=== PATIENT | male | born 1985 | race Hispanic/Latino ===

== ENCOUNTER 2023-10-23 22:41 | Emergency (ER) | payer SELFPAY ==
[2023-10-23 22:53] VITALS: BP 143/107; PULSE 83; RESP 16; TEMP 37.1; O2SAT 94
[2023-10-23 23:39] LABS: Influenza A QL RT-PCR Negative (Negative); Influenza B QL RT-PCR Negative (Negative); RSV RNA, RT-PCR Negative (Negative); SARS-CoV-2 RNA PCR Negative (Negative)
[2023-10-24] MEDS: IBUPROFEN 400 MG TABLET 800 MG PO (00:32)
[2023-10-24] MEDS: ACETAMINOPHEN 500 MG TABLET 1000 MG PO (00:32)
[2023-10-24] MEDS: dexAMETHasone SOD PHOS INJ 10 MG/ML 1 ML VIAL IM (00:33)
[2023-10-24] MEDS: TETRACAINE HCL 0.5% OPHTH SOLN 4 ML BTL 1 DROP EACH EYE (00:49)
[2023-10-24] MEDS: FLUORESCEIN SOD 1 MG/STRIP EACH EYE (00:49)
[2023-10-24 01:14] LABS: Strep Group A RT-PCR NOT DETECTED (Negative)
--- NOTE | 2023-10-24 01:32 | ED.GENADULT ---
HPI - General Adult General Chief complaint: Fever Stated complaint: fever, ear pain, red eyes Time Seen by Provider: 10/23/23 23:41 History of Present Illness HPI narrative: Gabonese speaking. 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 This is a 37-year-old male presenting ED with chief complaint fevers eye irritation and sinus congestion. Symptoms been going on for 2 days. He has been treating his conjunctivitis with [id number]-[id number] medication from [place]. denies chest pain difficulty breathing abdominal pain nausea vomiting diarrhea. Related Data Allergies Allergy/AdvReac Type Severity Reaction Status Date / Time No Known Allergies Allergy Verified 10/23/23 22:58 Exam Narrative: APPEARANCE: No apparent distress. Head: atraumatic. EYES: Conjunctival injection, IOP 20 bilaterally, no fluorescein uptake, erythema of the posterior oropharynx NOSE: Atraumatic NECK: Trachea midline RESPIRATORY: No increased rate of breathing, CTAB CARDIOVASCULAR: RRR, ABDOMINAL: Non-distended MUSCULOSKELETAl: No obvious deformities NEURO: Alert. Moving 4/4 extremities SKIN:: Warm, dry. Normal color PSYCHIATRIC: Normal affect Course Vital Signs Vital signs: Vital Signs Temperature 98.8 F 10/23/23 22:53 Pulse Rate 83 10/23/23 22:53 Respiratory Rate 16 10/23/23 22:53 Blood Pressure 143/107 H 10/23/23 22:53 Pulse Oximetry 94 10/23/23 22:53 Oxygen Delivery Room Air 10/23/23 22:53 Temperature 98.8 F 10/23/23 22:53 Pulse Rate 83 10/23/23 22:53 Respiratory Rate 16 10/23/23 22:53 Blood Pressure 143/107 H 10/23/23 22:53 Pulse Oximetry 94 10/23/23 22:53 Oxygen Delivery Room Air 10/23/23 22:53 Medical Decision Making [facility] Narrative Medical decision making narrative: -Course: 37-year-old presenting with URI. Associated symptoms include conjunctivitis and congestion. eye exam showed no fluorescein uptake increased intra-ocular pressure. viral swabs negative. Strep negative. Patient discharged with Ocuflox eye drops Motrin Tylenol. 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 -Independent interpretation of studies: viral swabs in strep negative IOP 20 bilaterally, no fluorescein uptake, no vision changes -Interventions: Motrin Tylenol dexamethasone -Shared decision making / Disposition: discharge -RX Motrin Tylenol Ocuflox Vital Signs Vital Signs: Vital Signs Temperature 98.8 F 10/23/23 22:53 Pulse Rate 83 10/23/23 22:53 Respiratory Rate 16 10/23/23 22:53 Blood Pressure 143/107 H 10/23/23 22:53 Pulse Oximetry 94 10/23/23 22:53 Oxygen Delivery Room Air 10/23/23 22:53 Temperature 98.8 F 10/23/23 22:53 Pulse Rate 83 10/23/23 22:53 Respiratory Rate 16 10/23/23 22:53 Blood Pressure 143/107 H 10/23/23 22:53 Pulse Oximetry 94 10/23/23 22:53 Oxygen Delivery Room Air 10/23/23 22:53 Lab Data Labs: Lab Results 10/23/23 10/24/23 Range/Units 22:57 00:37 Influenza A (RT-PCR) Negative (Negative) Influenza B (RT-PCR) Negative (Negative) RSV (RT-PCR) Negative (Negative) SARS-CoV-2 RNA (RT-PCR) Negative (Negative) Group A Strep (PCR) Not detected (Negative) Discharge Plan Discharge Clinical Impression: Conjunctivitis, URI (upper respiratory infection) Patient Disposition: Home, Self-Care Condition: Stable Instructions: Antibiotic Form, Conjunctivitis (ED) Additional Instructions: please take medications as prescribed. Please follow-up with primary care physician. Return if you are getting worse. Patient Language: Gabonese Prescriptions: New ibuprofen 800 mg tablet 800 mg PO TID PRN (Reason: pain) 7 Days Qty: 21 0RF acetaminophen 500 mg tablet 1,000 mg PO TID PRN (Reason: kassandra) 7 Days Qty: 42 0RF ofloxacin [Ocuflox] 0.3 % drops See Rx Instructions .ROUTE .COMPLE
[2023-10-24 01:55] VITALS: BP 139/99; PULSE 80; RESP 18; O2SAT 96
== END 2023-10-24 01:56 | disposition home or self-care (01) ==
PROVIDERS: Emergency Provider Emergency Medicine
DX: H10.9 Unspecified conjunctivitis (principal); J06.9 Acute upper respiratory infection, unspecified; Z20.822 Contact with and (suspected) exposure to COVID-19
CPT/HCPCS: 87637; 87651; 96372; 99283; A9270; J1100